=== PATIENT | female | born 1990 | race Two or more races ===

== ENCOUNTER 2023-07-21 02:30 | Emergency (ER) | payer OTHER ==
[~2023-07-21] VITALS: Ht 154.9 cm; Wt 48.5 kg
[2023-07-21] MEDS ORDERED: GUAIFENESIN 200 MG/10 ML BLIST.PACK PO ONE (09:15)
[2023-07-21] MEDS ORDERED: DEXAMETHASONE SODIUM PHOSPHATE 4 MG/ML VIAL IM ONE (09:15)
[2023-07-21 09:38] LABS: HEMATOCRIT 37.9 % (36.0-45.00); HEMOGLOBIN 12.9 g/dL (12.0-15.00); MEAN CELL VOLUME 86.2 fL (80.00-100.00); MEAN CORPUSCULAR HEMOGLOBIN 29.3 pg (27.00-32.0); PLATELET COUNT 332 K/uL (150-450); RED CELL DISTRIBUTION WIDTH 12.7 % (11.5-14.5)
== END 2023-07-21 11:19 | disposition home or self-care (01) ==
LOC: ER 02:31
PROVIDERS: General Practice
DX: B34.9 Viral infection, unspecified (principal); J00 Acute nasopharyngitis [common cold]
CPT/HCPCS: 36415; 96372; 99282; J1100